=== PATIENT | male | born 1960 | race Caucasian/White ===

== ENCOUNTER 2019-08-16 07:50 | Day surgery (SDC) | payer MEDICARE, SELFPAY ==
--- NOTE | 2019-08-15 19:57 | PCM.HP.BLA ---
History and Physical Date of Admission: 08/16/19 HISTORY AND PHYSICAL ? Mitul Bhat 1960 ? REFERRING PHYSICIAN: Lor Klein, DO ? CHIEF COMPLAINT: Consult ? HPI: The patient is a 59 year old male referred for endoscopy. Patient recently had stool testing done through his PCP which was positive for occult blood. Mitul notes no colon complaints. Patient denies any change in bowel habits, weight changes, visible blood in stools, black tarry stools or abdominal pain. Denies family history of colon issues. The patient notes no upper GI complaints. Mitul has not undergone prior endoscopy. ? Patient's past medical history is significant for hypertension, hyperlipidemia, traumatic amputation of right arm, restless leg syndrome. Patient follows with Lor Klein in primary care. Medication list in [facility] shows suboxone. ? Patient notes he is very anxious regarding endoscopy procedure. He states he wants to be completely asleep and unaware of any aspect of the procedure. ? PAST MEDICAL HISTORY ? Allergic rhinitis, cause unspecified ? ? Amputation of arm, right (HCC) ? ? due to trauma ? Hyperlipidemia ? ? Hypertension ? ? Left shoulder pain ? ? sees pain mgt ? Lumbago ? ? Sees pain mgt ? Lung nodule ? ? 2010, neg w/u ? Other abnormal glucose ? ? RLS (restless legs syndrome) ? ? Sensorineural hearing loss, unspecified ? ? ? PAST SURGICAL HISTORY ? AMPUTATION, ARM THRU HUMERUS W CLOSURE ? 1982 ? ORTHOPEDICS SURGERY HX ? ? ? CURRENT MEDICATIONS ? buprenorphine-naloxone (SUBOXONE) 8-2 mg film Dissolve 2 Film under the tongue once daily. ? MEDICATION, NON-DATABASE spurina ? ascorbic acid (VITAMIN C) 500 mg tablet Take 500 mg by mouth once daily. 1 tablet daily in summer and 2 tablets daily in winter ?? ? ALLERGIES: Advicor [Niacin-Lovastatin]; Contrast Dye; Penicillin G ? PERSONAL HISTORY: ? Smoking status: Current Every Day Smoker ? ? Packs/day: 1.00 ? ? Types: Cigarettes ? Smokeless tobacco: Never Used Substance Use Topics ? Alcohol use: No ? Drug use: No ? FAMILY HISTORY: ? Coronary Artery Disease Father 55 ? Hypertension Father ? ? Diabetes Father ? ? Lipids Father ? ? Coronary Artery Disease Paternal Uncle 55 ? Coronary Artery Disease Paternal Uncle 55 ? Stroke Brother ? ? ? REVIEW OF SYMPTOMS: The review of systems data was entered by the nurse and reviewed by me ? Nursing Notes: Hannah De Leon RN 07/28/2019 3:20 PM Signed REVIEW OF SYSTEMS: General: The patient denies fatigue, denies weight loss, denies weight gain, denies feeling hot, and denies feelings of cold. Eyes: The patient denies glaucoma, denies eye injury/surgery, wears glasses or contacts. Ear/Nose/Throat: The patient denies allergies, notes hayfever, denies ear infections, and denies bloody noses. Cardiovascular: The patient denies chest pain, denies heart disease, notes high blood pressure,denies cardiac stent, denies prior heart attack, denies irregular heart beat, notes high cholesterol, denies poor circulation, denies heart failure, other cardiac issues, notes claudication, denies cold feet, denies peripheral arterial stent. Respiratory: The patient denies tuberculosis, denies pneumonia, denies frequent cough, denies pulmonary embolism, denies shortness of breath, and denies coughing up blood. Gastrointestinal: The patient denies difficulty swallowing, denies acid reflux, denies ulcers, denies vomiting, denies jaundice/hepatitis, denies gallbladder problems, denies black or tarry stools, denies hemorrhoids, denies bleeding from rectum, denies diverticulitis, denies constipation, denies diarrhea, denies loss of stool control, and denies hernias. Kidney/Bladder: The patient denies kidney stones, denies urine infections, and denies bloody urine. Skin: The patient denies a history of skin cancer, denies bleeding/changing moles, and denies a history of skin rash. Neurologic: The patient denies a history of epilepsy/convulsions, denies headaches, denies head/spinal injuries, and denies stroke/TIA. Psychiatric: The patient denies psychiatric medications, denies depression, and denies voices, denies substance abuse. Endocrine: The patient denies thyroid disorders, denies diabetes, and denies hormonal problems. Hematologic: The patient denies a history of bruising, denies bleeding, and denies anemia, denies blood clots. Infections: The patient notes a history of measles and mumps, denies rheumatic fever, and denies sexually transmitted diseases. Musculoskeletal: The patient notes back pain/injury, notes back problems, denies sciatica, notes knee/foot trouble, denies arthritis, or denies gout. ? ? When was patient's last Mammogram screening? N/A ? Last Colonoscopy: no ? Hannah De Leon RN I have confirmed and edited as necessary, the PFSH and ROS obtained by others. ? PHYSICAL EXAMINATION: ? General: The patient is 59 year old male, well nourished, well hydrated in no acute distress. The patient is oriented to time, place, and person. ? VITALS: Blood pressure 140/80, pulse 98, temperature 36.5 ?C (97.7 ?F), temperature source Temporal Artery, height 182.9 cm (6'), weight 87.1 kg (192 lb), SpO2 96 %. Body mass index is 26.04 kg/m?. ? HEENT: Normal cephalic, ataumatic, pupils are equally round, sclera are anicteric, mucous membranes are moist, oropharynx is clear. Neck has no masses, asymmetry or lymphadenopathy. ? Respiratory: Clear to auscultation and percussion. Normal respiratory excursion and pattern. ? Cardiac: Examination is regular rate and rhythm. Normal S1/S2 ? Abdominal exam: Soft, nontender, with no palpable masses. No hepatosplenomegaly. No palpable hernias. ? Extremities: no clubbing, cyanosis or edema. No adenopathy. ? LABORATORY VALUES: As Noted ? RADIOLOGIC STUDIES: As Noted ? ? IMPRESSION: heme positive stool ? PLAN: I have reviewed my findings with the surgeon. Will plan for upper and lower endoscopy. We discussed the risks and benefits of the planned endoscopy. I have informed the patient that complications can occur including failure to complete the endoscopy and perforation. The patient had the opportunity to ask questions concerning the planned endoscopy. My staff has also explained the procedure to the patient in understandable terms and has given the patient printed material concerning the procedure. The patient freely consents to surgery. ? I plan to use Golytely bowel preparation ? We will plan for Monitored Anesthetic Care. ? ? Diagnoses: (R19.5) Heme positive stool (primary encounter diagnosis) ? ? Pebbles Morley PA-C
[2019-08-16 08:09] VITALS: BP 151/78; PULSE 76; RESP 18; TEMP 36.4; O2SAT 98; BMI 26.2
[2019-08-16] MEDS: Lactated Ringers 1,000 ML 75 ML IV (08:22)
--- NOTE | 2019-08-16 08:45 | EGD_PTH ---
PATIENT: SEBAS PULLIAM LOC: EN U#:[id number] AGE/SX: 59/M ROOM: RE08/16/[address]: Dr. Sylvia Razo MD : 1960 BED: DIS: 08/16/2019 SPEC #: [id number] RECD: 08/16/19 14:48 STATUS: DEANNA REPercy #: [id number] LUIZA: 08/16/19 08:[address]: Sylvia Razo DEPT: SURGICAL PATHOLOGY RECD BY: Jass Noel ENTERED: 08/17/19 09:09 SP TYPE: EGD BIOPSY OTHR DR: Dr. Lor Klein DO Tissues: A - Duodenum, NOS B - Gastric mucous membrane C - Gastric mucous membrane Procedures: Special Stain Group II Surgery Specimen Level IV Alcian Blue/PAS (control) HEADER OPERATION: Colonoscopy, EGD ([facility] [place] PRE-OP DIAGNOSIS: Heme-positive stool TISSUE SUBMITTED: A - Second portion of duodenum biopsy, B - Antrum biopsy for histo and H.?pylori, C - GE junction biopsy MICROSCOPIC DIAGNOSIS A. Second portion of duodenum, biopsy: No significant pathologic change. No evidence of duodenitis. B. Gastric antrum, biopsy: Chronic gastritis. Focal intestinal metaplasia. No evidence of dysplasia. See comment. C. Gastroesophageal junction, biopsy: Intestinal metaplasia consistent with Ron's esophagus. No evidence of dysplasia. Focal changes of reflux. Mild chronic inflammation. See comment. AM:eva 08/18/19 COMMENT B. The results of immunohistochemistry for Helicobacter pylori will be reported separately ([id number]). C. Alcian blue/PAS stain with matched control supports the above diagnosis. Immunohistochemistry ([id number]) supports the above diagnosis. MICROSCOPIC DESCRIPTION Slides are reviewed. GROSS DESCRIPTION A - Received in fixative is one container labeled with the patient's name and designated second portion duodenum biopsy. The specimen consists of two irregular fragments of light stanton soft tissue that in aggregate measure 0.3 x 0.2 x 0.1 cm. The specimen is totally submitted in one cassette. B - Received in fixative is one container labeled with the patient's name and designated antrum biopsy. The specimen consists of multiple irregular fragments of light stanton soft tissue that in aggregate measure 0.6 x 0.2 x 0.1 cm. The specimen is totally submitted in one cassette. C - Received in fixative is one container labeled with the patient's name and designated GE junction biopsy. The specimen consists of multiple irregular fragments of light stanton soft tissue that in aggregate measure 0.6 x 0.2 x 0.1 cm. The specimen is totally submitted in one cassette. / AM:eva 08/17/19 TC:3 CPT: 14536 x3, 28404
--- NOTE | 2019-08-16 08:45 | IMM_PTH ---
PATIENT: SEBAS PULLIAM LOC: [facility] U#:[id number] AGE/SX: 59/M ROOM: RE08/16/[address]: Dr. Sylvia Razo MD : 1960 BED: DIS: 08/16/2019 SPEC #: [id number] RECD: 08/17/19 08:58 STATUS: DEANNA REQ #: [id number] LUIZA: 08/16/19 08:[address]: Sylvia Razo DEPT: IMMUNOHISTOCHEMISTRY RECD BY: Kathy Pina ENTERED: 08/17/19 08:58 SP TYPE: IMMUNO OTHR DR: Dr. Lor Klein DO Tissues: B - Stomach, NOS C - Gastric mucous membrane Procedures: H Pylori (initial) P53 (initial) KI-67 (add) PHYSICIAN & INSTITUTION [place] [id number] SPECIMEN INFORMATION: Tissue Source: B - Antrum biopsy, C - Gastroesophageal junction biopsy Clinical Info: Heme-positive stool Specimen Number: [id number] B & C CPT code: 92283 x2, 27261 METHODOLOGY: Deparaffinized sections of prefer/formalin-fixed tissue or PAP/DQ stained slides are incubated with monoclonal/polyclonal antibodies/oligonucleotide probes. Localization is made via biotin free immunoperoxidase method. Appropriate controls are performed and reacted as expected. Results on target cell population are indicated in the following table: RESULTS: ANTIBODY / CLONE RESULT Block B H Pylori (polyclonal) negative Block C P53 (DO-7) negative Ki-67 (30-9) negative These tests were developed and their performance characteristics determined by [facility]. They may not have been cleared or approved by the U.S. Food and Drug Administration. The FDA has determined that such clearance or approval is not necessary. The above immunohistochemical/dualISH markers are ordered and reviewed by the pathologist. INTERPRETATION: B. Antrum biopsy: Negative for Helicobacter pylori organisms. C. Gastroesophageal junction, biopsy: No evidence of dysplasia. AM:eva 08/19/19
[2019-08-16 09:50] VITALS: BP 119/77; BP 151/78; PULSE 75; RESP 18; TEMP 36.5; O2SAT 100
--- NOTE | 2019-08-16 09:52 | OP.EGD_ITS ---
Patient Name: Mitul Bhat Procedure Date: 08/16/2019 8:54 AM Date of : 1960 Age: 59 Procedure: Upper GI endoscopy Indications: Heme positive stool Providers: Sylvia Razo MD Medicines: See the Anesthesia note for documentation of the administered medications Patient Profile: Refer to note in patient chart for documentation of history and physical. Complications: No immediate complications. Procedure: Pre-Anesthesia Assessment: - see anesthesia note After obtaining informed consent, the endoscope was passed under direct vision. Throughout the procedure, the patient's blood pressure, pulse, and oxygen saturations were monitored continuously. The gastroscope was introduced through the mouth, and advanced to the second part of duodenum. The upper GI endoscopy was accomplished without difficulty. The patient tolerated the procedure well. Scope In: 9:07:54 AM Scope Out: 9:17:41 AM Total Procedure Duration Time 0 hours 9 minutes 47 seconds Findings: The first portion of the duodenum and second portion of the duodenum were normal. Biopsies for histology were taken with a cold forceps for evaluation of celiac disease. Estimated blood loss was minimal. The entire examined stomach was normal. Biopsies were taken with a cold forceps for histology. Estimated blood loss was minimal. A small hiatal hernia was present. Biopsies were taken with a cold forceps for histology. Estimated blood loss was minimal. Impression: - Normal first portion of the duodenum and second portion of the duodenum. Biopsied. - Normal stomach. Biopsied. - Small hiatal hernia. Biopsied. Recommendation: - Discharge patient to home (ambulatory). - Resume previous diet. - Continue present medications. - Await pathology results. - My office will telephone with pathology results in 1-2 weeks Procedure Code(s): --- Professional --- 61243, Esophagogastroduodenoscopy, flexible, transoral; with biopsy, single or multiple Diagnosis Code(s): --- Professional --- K44.9, Diaphragmatic hernia without obstruction or gangrene R19.5, Other fecal abnormalities CPT copyright 2017 [employer]. All rights reserved. The codes documented in this report are preliminary and upon mri tech review may be revised to meet current compliance requirements. MD Sylvia Soto MD 08/16/2019 9:51:36 AM This report has been signed electronically. Number of Addenda: 0 Note Initiated On: 08/16/2019 8:54 AM
--- NOTE | 2019-08-16 09:54 | OP.COLON_ITS ---
Patient Name: Mitul Bhat Procedure Date: 08/16/2019 9:20 AM Date of : 1960 Age: 59 Procedure: Colonoscopy Indications: Heme positive stool Providers: Sylvia Razo MD Medicines: See the Anesthesia note for documentation of the administered medications Patient Profile: Refer to note in patient chart for documentation of history and physical. Last Colonoscopy: none. The patient's first colonoscopy is today. Complications: No immediate complications. Procedure: Pre-Anesthesia Assessment: - see anesthesia note After I obtained informed consent, the scope was passed under direct vision. Throughout the procedure, the patient's blood pressure, pulse, and oxygen saturations were monitored continuously. The Colonoscope was introduced through the anus and advanced to the cecum, identified by appendiceal orifice and ileocecal valve. The colonoscopy was performed without difficulty. The patient tolerated the procedure well. The quality of the bowel preparation was poor. Scope In: 9:21:44 AM Scope Withdrawal Time 0 hours 16 minutes 47 seconds Scope Out: 9:44:13 AM Total Procedure Duration Time 0 hours 22 minutes 29 seconds Findings: The perianal and digital rectal examinations were normal. Non-bleeding internal hemorrhoids were found. Impression: - Preparation of the colon was poor. - Non-bleeding internal hemorrhoids. - No specimens collected. Recommendation: - Repeat colonoscopy in 10 years for screening purposes. - Return to primary care physician PRN. - Continue present medications. Procedure Code(s): --- Professional --- 85132, Colonoscopy, flexible; diagnostic, including collection of specimen(s) by brushing or washing, when performed (separate procedure) Diagnosis Code(s): --- Professional --- K64.8, Other hemorrhoids R19.5, Other fecal abnormalities CPT copyright 2017 [employer]. All rights reserved. The codes documented in this report are preliminary and upon trains service conductor review may be revised to meet current compliance requirements. MD Sylvia Soto MD 08/16/2019 9:53:52 AM This report has been signed electronically. Number of Addenda: 0 Note Initiated On: 08/16/2019 9:20 AM
[2019-08-16 09:55] VITALS: BP 129/79; BP 151/78; PULSE 71; RESP 17; O2SAT 100
[2019-08-16 10:00] VITALS: BP 124/79; BP 151/78; PULSE 67; RESP 17; O2SAT 100
[2019-08-16 10:05] VITALS: BP 139/85; BP 151/78; PULSE 68; RESP 16; TEMP 36.3; O2SAT 99
[2019-08-16 10:20] VITALS: BP 151/78
== END 2019-08-16 10:33 | disposition home or self-care (01) ==
LOC: EN 07:56 → AC 07:57
PROVIDERS: PCP Family Medicine; Referring Provider Surgery; Visit Provider Surgery
PROC: 0DJD8ZZ Inspection of Lower Intestinal Tract, Via Natural or Artificial Opening Endoscopic (ICD-10-PCS; CPT 45378; principal; 2019-08-16 08:40)
DX: K29.50 Unspecified chronic gastritis without bleeding (principal); K44.9 Diaphragmatic hernia without obstruction or gangrene; K64.8 Other hemorrhoids; G25.81 Restless legs syndrome; F17.210 Nicotine dependence, cigarettes, uncomplicated
CPT/HCPCS: 43239; 45378; 88305; 88313; 88341; 88342; J7120